=== PATIENT | female | born 1940 | race Caucasian/White ===

== ENCOUNTER 2017-11-20 15:03 | Emergency (ER) | payer MEDICARE, BC ==
[2017-11-20] MEDS ORDERED: Sodium Chloride 0.9% 10 ML Syringe FLUSH PRN (15:21)
[2017-11-20] MEDS ORDERED: Furosemide 20 MG Tab PO ONE (15:25)
[2017-11-20] MEDS ORDERED: Metoprolol Tartrate 25 MG Tab PO ONE ×2 (15:25→17:52)
[2017-11-20] MEDS ORDERED: Hydrochlorothiazide 12.5 MG Cap PO SCH (15:30)
--- NOTE | 2017-11-20 15:34 | EDM.PDOC ---
ED HPI GENERAL MEDICAL PROBLEM - General Chief Complaint: Neurological Problem Stated Complaint: CONFUSED/LOST Time Seen by Provider: 11/20/17 15:20 Source of Information: Reports: Patient, Old Records, RN History Limitations: Reports: No Limitations - History of Present Illness INITIAL COMMENTS - FREE TEXT/NARRATIVE: 76 yo female awoke in the night last night all sweaty. No chills or fever that she is aware of. No pain. Has been mildly confused/slow mentating today. Thinks she forgot to take her meds today. Lives alone. No SOB. No nausea or vomiting. No rash. Drove herself to the hospital. Onset: Today Onset Date: 11/20/17 Onset Time: 03:00 Duration: Hour(s):, Constant Location: Reports: Head, Generalized Quality: Reports: Other (no pain) Severity: Mild Improves with: Reports: None Worsens with: Reports: None Context: Reports: Other (unknown) Associated Symptoms: Reports: Diaphoresis (last night only), Headaches (mild). Denies: Fever/Chills, Nausea/Vomiting Treatments [employer]: Reports: Other (see below) (none) - Related Data Allergies Allergy/AdvReac Type Severity Reaction Status Date / Time NSAIDS (Non-Steroidal Allergy Cannot Verified 11/20/17 15:44 Anti-Inflamma Remember venlafaxine HCl AdvReac Hallucinati Verified 11/20/17 15:44 [From Effexor] ons Home Meds: Home Meds Acetaminophen/HYDROcodone [[place] 325-5 MG] 1 tab PO Q4H PRN 12/27/13 [History] Cholecalciferol (Vitamin D3) [Vitamin D] 5,000 units PO DAILY 12/27/13 [History] DULoxetine [Cymbalta] 60 mg PO DAILY 12/27/13 [History] Fenofibrate,Micronized [Fenofibrate] 200 mg PO DAILY 12/27/13 [History] Furosemide [Lasix] 20 mg PO DAILY PRN 12/27/13 [History] Gabapentin [Neurontin] 600 mg PO 5XDAY 12/27/13 [History] Levothyroxine [Synthroid] 50 mcg PO ACBRK 12/27/13 [History] Metoprolol Succinate 12.5 mg PO BID 12/27/13 [History] Valsartan/Hydrochlorothiazide [Valsartan-Hctz 80-12.5 mg Tab] 0.5 tab PO DAILY 12/27/13 [History] traMADol [Ultram] 50 - 100 mg PO Q6H PRN 12/27/13 [History] Acetaminophen/HYDROcodone [[place] 325-5 MG] 1 tab PO Q4H PRN 12/30/14 [History] fentaNYL [Fentanyl] 12 mcg TOP 12/30/14 [History] Ciprofloxacin HCl [Cipro] 250 mg PO Q12H #10 tablet 11/20/17 [Rx] Social & Family History - Tobacco Use Smoking Status *Q: Never Smoker Second Hand Smoke Exposure: No - Alcohol Use Days Per Week of Alcohol Use: 1 Number of Drinks Per Day: 1 Total Drinks Per Week: 1 - Recreational Drug Use Recreational Drug Use: No - Living Situation & Occupation Living situation: Reports: Alone Occupation: Unemployed ED ROS GENERAL - Review of Systems Review Of Systems: See Below Constitutional: Reports: Diaphoresis (last night only) HEENT: Reports: No Symptoms Respiratory: Reports: No Symptoms Cardiovascular: Reports: No Symptoms GI/Abdominal: Reports: No Symptoms : Reports: No Symptoms Musculoskeletal: Reports: No Symptoms Skin: Reports: No Symptoms Neurological: Reports: Confusion (mild) Psychiatric: Reports: No Symptoms ED EXAM, NEURO - Physical Exam Exam: See Below Exam Limited By: No Limitations General Appearance: Alert, WD/WN Eye Exam: Bilateral Eye: EOMI, Normal Inspection, PERRL Ears: Normal External Exam, Normal Canal, Hearing Grossly Normal, Normal TMs Nose: Normal Inspection, Normal Mucosa, No Blood Throat/Mouth: Normal Inspection, Normal Lips, Normal Oropharynx, Normal Voice, No Airway Compromise Head Exam: Atraumatic, Normocephalic Neck: Normal Inspection, Supple, Non-Tender Respiratory/Chest: No Respiratory Distress, Lungs Clear, Normal Breath Sounds, No Accessory Muscle Use Cardiovascular: Regular Rate, Rhythm, No Edema GI/Abdominal: Normal Bowel Sounds, Soft, Non-Tender, No Distention Neurological: Alert, Normal Mood/Affect, CN II-XII Intact, No Motor/Sensory Deficits, Oriented x 3 Back Exam: Normal Inspection. No: CVA Tenderness (R), CVA Tenderness (L) Extremities: Normal Inspection, Normal Range of Motion, Non-Tender, No Pedal Edema Psychiatric: Normal Affect, Normal Mood Skin Exam: Warm, Dry, Intact, Normal Color, No Rash EKG INTERPRETATION EKG Date: 11/20/17 Time: 15:35 Rhythm: NSR Rate (Beats/Min): 74 [place]: Normal P-Wave: Present QRS: Other (L ant fascicular block) ST-T: Normal QT: Prolonged Comparison: NA - No Prior EKG Course - Vital Signs Last Recorded V/S: Last Vital Signs Temp 36.6 C 11/20/17 15:41 Pulse 82 11/20/17 17:16 Resp 18 11/20/17 15:41 BP 169/109 H 11/20/17 17:16 Pulse Ox 94 L 11/20/17 17:11 - Orders/Labs/Meds Orders: Active Orders 24 hr Category Date Time Status Bladder Scan [RC] ONETIME Care 11/20/17 15:57 Active Cardiac Monitoring [RC] .As Directed Care 11/20/17 15:21 Active EKG Documentation Completion [RC] ASDIRECTED Care 11/20/17 15:29 Active CULTURE URINE [RM] Stat Lab 11/20/17 17:00 Received UA W/MICROSCOPIC [URIN] Stat Lab 11/20/17 16:13 Ordered Ciprofloxacin in D5W [Cipro in D5W 400 MG/200 ML] 400 Med 11/20/17 16:59 Active mg Premix Bag 1 bag IV ONETIME Hydrochlorothiazide Med 11/20/17 15:30 Active 12.5 mg PO DAILY Sodium Chloride 0.9% [Saline Flush] Med 11/20/17 15:21 Active 10 ml FLUSH ASDIRECTED PRN Saline Lock Insert [OM.PC] Routine Oth 11/20/17 15:21 Ordered EKG 12 Lead [EK] Routine Ther 11/20/17 15:28 Ordered Medication Orders Hydrochlorothiazide (Hydrochlorothiazide) 12.5 mg PO DAILY [facility] Last Admin: 11/20/17 17:15 Dose: 12.5 mg Ciprofloxacin/Dextrose 400 mg/ (Premix) 200 mls @ 200 mls/hr IV ONETIME ONE Stop: 11/20/17 17:58 Last Admin: 11/20/17 17:21 Dose: 200 mls/hr Sodium Chloride (Saline Flush) 10 ml FLUSH ASDIRECTED PRN PRN Reason: Keep Vein Open Last Admin: 11/20/17 17:25 Dose: 10 ml Labs: Laboratory Tests 11/20/17 11/20/17 11/20/17 Range/Units 15:30 15:30 15:30 WBC 7.2 (4.5-11.0) K/uL RBC 5.35 (3.30-5.50) M/uL Hgb 15.9 H D (12.0-15.0) g/dL Hct 46.3 (36.0-48.0) % MCV 87 (80-98) fL MCH 30 (27-31) pg MCHC 34 (32-36) % Plt Count 252 (150-400) K/uL Sodium 142 (140-148) mmol/L Potassium 3.3 L (3.6-5.2) mmol/L Chloride 104 (100-108) mmol/L Carbon Dioxide 27 (21-32) mmol/L Anion Gap 14.3 H (5.0-14.0) mmol/L BUN 19 H (7-18) mg/dL Creatinine 1.0 (0.6-1.0) mg/dL Est Cr Clr Drug Dosing 38.35 mL/min Estimated GFR (MDRD) 54 L (>60) Glucose 118 H (74-106) mg/dL Calcium 9.7 (8.5-10.1) mg/dL Magnesium (1.8-2.4) mg/dL Troponin I < 0.017 (0.000-0.056) ng/mL TSH, Ultra Sensitive 3.715 (0.358-3.740) uIU/mL Urine Color Urine Appearance Urine pH (4.5-8.0) Ur Specific [place] (1.008-1.030) Urine Protein (NEGATIVE) mg/dL Urine Glucose (UA) (NEGATIVE) mg/dL Urine Ketones (NEGATIVE) mg/dL Urine Occult Blood (NEGATIVE) Urine Nitrite (NEGATIVE) Urine Bilirubin (NEGATIVE) Urine Urobilinogen (NORMAL) mg/dL Ur Leukocyte Esterase (NEGATIVE) Urine RBC (0-5) Urine WBC (0-5) Ur Epithelial Cells Amorphous Sediment Urine Bacteria Urine Mucus 11/20/17 11/20/17 Range/Units 16:07 16:13 WBC (4.5-11.0) K/uL RBC (3.30-5.50) M/uL Hgb (12.0-15.0) g/dL Hct (36.0-48.0) % MCV (80-98) fL MCH (27-31) pg MCHC (32-36) % Plt Count (150-400) K/uL Sodium (140-148) mmol/L Potassium (3.6-5.2) mmol/L Chloride (100-108) mmol/L Carbon Dioxide (21-32) mmol/L Anion Gap (5.0-14.0) mmol/L BUN (7-18) mg/dL Creatinine (0.6-1.0) mg/dL Est Cr Clr Drug Dosing mL/min Estimated GFR (MDRD) (>60) Glucose (74-106) mg/dL Calcium (8.5-10.1) mg/dL Magnesium 1.6 L (1.8-2.4) mg/dL Troponin I (0.000-0.056) ng/mL TSH, Ultra Sensitive (0.358-3.740) uIU/mL Urine Color [place] Urine Appearance Slightly cloudy Urine pH 5.0 (4.5-8.0) Ur Specific [place] 1.025 (1.008-1.030) Urine Protein 100 H (NEGATIVE) mg/dL Urine Glucose (UA) Normal (NEGATIVE) mg/dL Urine Ketones 15 H (NEGATIVE) mg/dL Urine Occult Blood Moderate (NEGATIVE) Urine Nitrite Positive H (NEGATIVE) Urine Bilirubin Small (NEGATIVE) Urine Urobilinogen 1 (NORMAL) mg/dL Ur Leukocyte Esterase Large (NEGATIVE) Urine RBC 10-20 H (0-5) Urine WBC 20-30 H (0-5) Ur Epithelial Cells Rare Amorphous Sediment Few Urine Bacteria Moderate Urine Mucus Not seen Meds: Medications Generic Name Dose Route Start Last Admin Trade Name Freq PRN Reason Stop Dose Admin Hydrochlorothiazide 12.5 mg 11/20/17 15:30 11/20/17 17:15 Hydrochlorothiazide PO 12.5 mg DAILY SHERIF Administration Ciprofloxacin/Dextrose 400 mg/ 200 mls @ 200 mls/hr 11/20/17 16:59 11/20/17 17:21 Premix IV 11/20/17 17:58 200 mls/hr ONETIME ONE Administration Sodium Chloride 10 ml 11/20/17 15:21 11/20/17 17:25 Saline Flush FLUSH 10 ml ASDIRECTED PRN Administration Keep Vein Open Discontinued Medications Generic Name Dose Route Start Last Admin Trade Name Freq PRN Reason Stop Dose Admin Acetaminophen 1,000 mg 11/20/17 15:57 11/20/17 17:18 Tylenol Extra Strength PO 11/20/17 15:58 1,000 mg ONETIME ONE Administration Furosemide 20 mg 11/20/17 15:25 11/20/17 17:15 Lasix PO 11/20/17 15:26 20 mg ONETIME ONE Administration Lactated Ringer's 1,000 mls @ 1,000 mls/hr 11/20/17 15:57 11/20/17 17:13 Ringers, Lactated IV 11/20/17 16:56 1,000 mls/hr BOLUS ONE Administration Magnesium Oxide 800 mg 11/20/17 16:57 11/20/17 17:17 Magnesium Oxide PO 11/20/17 16:58 800 mg ONETIME ONE Administration Metoprolol Tartrate 25 mg 11/20/17 15:25 11/20/17 17:16 Lopressor PO 11/20/17 15:26 25 mg ONETIME ONE Administration Potassium Chloride 40 meq 11/20/17 16:07 11/20/17 17:19 Klor-Con M20 PO 11/20/17 16:08 40 meq ONETIME ONE Administration Valsartan 80 mg 11/20/17 15:24 11/20/17 17:15 Diovan PO 11/20/17 15:25 80 mg ONETIME ONE Administration Departure - Departure Time of Disposition: 18:20 Disposition: Home, Self-Care 01 Condition: Fair Clinical Impression: Hypokalemia, Hypomagnesemia UTI (urinary tract infection) Qualifiers: Urinary tract infection type: site unspecified Hematuria presence: without hematuria Qualified Code(s): N39.0 - Urinary tract infection, site not specified - Discharge Information Prescriptions: Ciprofloxacin HCl [Cipro] 250 mg PO Q12H #10 tablet Referrals: PCP,None [Primary Care Provider] - Forms: ED Department Discharge Additional Instructions: Take ciprofloxacin every 12 hrs as directed. Drink ample fluids. Take acetaminophen as needed for pain or fever control. F/U with your provider early next week to review your urine culture results. Eat a high potassium diet(lots of fresh fruit, yogurt). Return if worse. - My Orders Last 24 Hours: My Active Orders 11/20/17 15:21 Cardiac Monitoring [RC] .As Directed Sodium Chloride 0.9% [Saline Flush] 10 ml FLUSH ASDIRECTED PRN Saline Lock Insert [OM.PC] Routine 11/20/17 15:28 EKG 12 Lead [EK] Routine 11/20/17 15:29 EKG Documentation Completion [RC] ASDIRECTED 11/20/17 15:30 Hydrochlorothiazide 12.5 mg PO DAILY 11/20/17 15:57 Bladder Scan [RC] ONETIME 11/20/17 16:13 UA W/MICROSCOPIC [URIN] Stat 11/20/17 16:59 Ciprofloxacin in D5W [Cipro in D5W 400 MG/200 ML] 400 mg Premix Bag 1 bag IV ONETIME 11/20/17 17:00 CULTURE URINE [RM] Stat - Assessment/Plan Last 24 Hours: My Active Orders 11/20/17 15:21 Cardiac Monitoring [RC] .As Directed Sodium Chloride 0.9% [Saline Flush] 10 ml FLUSH ASDIRECTED PRN Saline Lock Insert [OM.PC] Routine 11/20/17 15:28 EKG 12 Lead [EK] Routine 11/20/17 15:29 EKG Documentation Completion [RC] ASDIRECTED 11/20/17 15:30 Hydrochlorothiazide 12.5 mg PO DAILY 11/20/17 15:57 Bladder Scan [RC] ONETIME 11/20/17 16:13 UA W/MICROSCOPIC [URIN] Stat 11/20/17 16:59 Ciprofloxacin in D5W [Cipro in D5W 400 MG/200 ML] 400 mg Premix Bag 1 bag IV ONETIME 11/20/17 17:00 CULTURE URINE [RM] Stat
[2017-11-20] MEDS ORDERED: Lactated Ringers 1,000 ML IV ONE (15:57)
[2017-11-20] MEDS ORDERED: Acetaminophen 500 MG Tab PO ONE (15:57)
[2017-11-20] MEDS ORDERED: Potassium Chloride 20 MEQ Tab.ER PO ONE (16:07)
[2017-11-20] MEDS ORDERED: Magnesium Oxide 400 MG Tab PO ONE (16:57)
[2017-11-20] MEDS ORDERED: Ciprofloxacin in D5W 400 MG in Premix Bag 1 BAG IV ONE ×2 (16:59)
[2017-11-20 17:49] VITALS: BP 198/110
== END 2017-11-20 19:10 | disposition home or self-care (01) ==
LOC: JP.ED 15:03
DX: N39.0 Urinary tract infection, site not specified (principal); I10 Essential (primary) hypertension; E87.6 Hypokalemia; E83.42 Hypomagnesemia; Z79.899 Other long term (current) drug therapy; Z88.8 Allergy status to other drugs, medicaments and biological substances
CPT/HCPCS: 36415; 51798; 80048; 81001; 83735; 84443; 84484; 85027; 87086; 87088; 87186; 93005; 96365; 99284; A9270; J0744; J7050; J7120

== ENCOUNTER 2017-11-22 12:49 | Observation (INO) | payer MEDICARE, BC ==
[2017-11-22] MEDS ORDERED: Levofloxacin/Dextrose 5%-Water 500 MG in Premix Bag 1 BAG IV ONE (14:00)
[2017-11-22] MEDS ORDERED: Sodium Chloride 0.9% 1,000 ML IV SCH ×2 (14:00→16:03)
--- NOTE | 2017-11-22 14:06 | EDM.PDOC ---
ED HPI GENERAL MEDICAL PROBLEM - General Chief Complaint: General Stated Complaint: UTI? Time Seen by Provider: 11/22/17 14:01 Source of Information: Reports: Patient History Limitations: Reports: No Limitations - History of Present Illness INITIAL COMMENTS - FREE TEXT/NARRATIVE: pt arrived stating she can,t take care of herself. Sh has been very confused for 1 week. She feels like she is not able to take care of her dog. She was seen 11/20 and she was found to have a uti. She was given a perscription which she filled but she never remembered to take any of them. She has not run a temp. She feels like he has not been funtioning well for several weeks. Onset: Gradual Duration: Day(s): Location: Reports: Other (uti) Associated Symptoms: Reports: Confusion, Malaise, Other (not remembering things. ) - Related Data Allergies Allergy/AdvReac Type Severity Reaction Status Date / Time NSAIDS (Non-Steroidal Allergy Cannot Verified 11/24/17 14:54 Anti-Inflamma Remember venlafaxine HCl AdvReac Hallucinati Verified 11/24/17 14:54 [From Effexor] ons Home Meds: Home Meds Acetaminophen/HYDROcodone [[place] 325-5 MG] 1 tab PO Q4H PRN 12/27/13 [History] Cholecalciferol (Vitamin D3) [Vitamin D] 5,000 units PO DAILY 12/27/13 [History] DULoxetine [Cymbalta] 60 mg PO DAILY 12/27/13 [History] Fenofibrate,Micronized [Fenofibrate] 200 mg PO DAILY 12/27/13 [History] Furosemide [Lasix] 20 mg PO DAILY PRN 12/27/13 [History] Gabapentin [Neurontin] 600 mg PO BID 12/27/13 [History] Levothyroxine [Synthroid] 50 mcg PO ACBRK 12/27/13 [History] Metoprolol Succinate 12.5 mg PO DAILY 12/27/13 [History] Valsartan/Hydrochlorothiazide [Valsartan-Hctz 80-12.5 mg Tab] 1 tab PO BEDTIME 12/27/13 [History] traMADol [Ultram] 50 - 100 mg PO BID PRN 12/27/13 [History] Acetaminophen/HYDROcodone [[place] 325-5 MG] 1 tab PO Q4H PRN 12/30/14 [History] Ciprofloxacin HCl [Cipro] 250 mg PO Q12H #10 tablet 11/20/17 [Rx] Past Medical History HEENT History: Reports: Cataract, Impaired Vision Cardiovascular History: Reports: Hypertension Psychiatric History: Reports: Anxiety, Depression - Past Surgical History HEENT Surgical History: Reports: Cataract Surgery, Tonsillectomy Neurological Surgical History: Reports: Other (See Below) Other Neurological Surgeries/Procedures: "7 back surgeries". Social & Family History - Tobacco Use Smoking Status *Q: Never Smoker Second Hand Smoke Exposure: No - Alcohol Use Days Per Week of Alcohol Use: 1 Number of Drinks Per Day: 1 Total Drinks Per Week: 1 - Recreational Drug Use Recreational Drug Use: No - Living Situation & Occupation Living situation: Reports: Alone Occupation: Unemployed ED ROS GENERAL - Review of Systems Review Of Systems: See Below Constitutional: Reports: No Symptoms HEENT: Reports: No Symptoms Respiratory: Reports: No Symptoms Cardiovascular: Reports: No Symptoms Endocrine: Reports: No Symptoms GI/Abdominal: Reports: No Symptoms : Reports: No Symptoms Musculoskeletal: Reports: No Symptoms Skin: Reports: No Symptoms Neurological: Reports: Confusion Psychiatric: Reports: Anxiety ED EXAM, GENERAL - Physical Exam Exam: See Below Free Text/Narrative:: pt appears very unkept for her. She has not slept ll nite because she didn,t remember how to turn off the lites. She was seen on the and found to have a UTI. Exam Limited By: No Limitations General Appearance: Alert, Anxious, Other ( Having difficulty remembering things. pupils are equal and ractive to lite. ) Ears: Normal TMs Nose: Normal Inspection Throat/Mouth: Normal Inspection Head: Atraumatic Neck: Normal Inspection Respiratory/Chest: No Respiratory Distress Cardiovascular: Regular Rate, Rhythm GI/Abdominal: Soft, Non-Tender (Female) Exam: Deferred Rectal (Female) Exam: Deferred Back Exam: Normal Inspection Extremities: Normal Inspection Neurological: Alert, Confused, Memory Loss Recent Events Psychiatric: Anxious Course - Vital Signs Last Recorded V/S: Last Vital Signs Temp 36.9 C 11/23/17 11:17 Pulse 74 11/23/17 11:17 Resp 18 11/23/17 11:17 BP 164/104 H 11/23/17 11:17 Pulse Ox 100 11/23/17 11:17 - Orders/Labs/Meds Labs: Laboratory Tests 11/22/17 11/22/17 11/22/17 Range/Units 13:04 13:04 13:35 WBC 6.5 (4.5-11.0) K/uL RBC 5.09 (3.30-5.50) M/uL Hgb 15.1 H (12.0-15.0) g/dL Hct 44.4 (36.0-48.0) % MCV 87 (80-98) fL MCH 30 (27-31) pg MCHC 34 (32-36) % Plt Count 245 (150-400) K/uL Neut % (Auto) 62 (36-66) % Lymph % (Auto) 29 (24-44) % [place] % (Auto) 9 H (2-6) % Eos % (Auto) 1 L (2-4) % Baso % (Auto) 0 (0-1) % Sodium 141 (140-148) mmol/L Potassium 3.9 (3.6-5.2) mmol/L Chloride 104 (100-108) mmol/L Carbon Dioxide 29 (21-32) mmol/L Anion Gap 7.9 (5.0-14.0) mmol/L BUN 28 H (7-18) mg/dL Creatinine 1.2 H (0.6-1.0) mg/dL Est Cr Clr Drug Dosing 31.96 mL/min Estimated GFR (MDRD) 43 L (>60) Glucose 109 H (74-106) mg/dL Lactic Acid 1.6 (0.4-2.0) mmol/L Calcium 9.6 (8.5-10.1) mg/dL Total Bilirubin 1.9 H D (0.2-1.0) mg/dL AST 84 H D (15-37) U/L ALT 38 (12-78) U/L Alkaline Phosphatase 76 (46-116) U/L C-Reactive Protein (0.0-0.3) mg/dL Total Protein 7.0 (6.4-8.2) g/dL Albumin 3.4 (3.4-5.0) g/dL Globulin 3.6 H (2.3-3.5) g/dL Albumin/Globulin Ratio 0.9 L (1.2-2.2) Urine Color Urine Appearance Urine pH (4.5-8.0) Ur Specific [place] (1.008-1.030) Urine Protein (NEGATIVE) mg/dL Urine Glucose (UA) (NEGATIVE) mg/dL Urine Ketones (NEGATIVE) mg/dL Urine Occult Blood (NEGATIVE) Urine Nitrite (NEGATIVE) Urine Bilirubin (NEGATIVE) Urine Urobilinogen (NORMAL) mg/dL Ur Leukocyte Esterase (NEGATIVE) Urine RBC (0-5) Urine WBC (0-5) Ur Epithelial Cells Amorphous Sediment Urine Bacteria Urine Mucus 11/22/17 11/22/17 Range/Units 14:30 14:42 WBC (4.5-11.0) K/uL RBC (3.30-5.50) M/uL Hgb (12.0-15.0) g/dL Hct (36.0-48.0) % MCV (80-98) fL MCH (27-31) pg MCHC (32-36) % Plt Count (150-400) K/uL Neut % (Auto) (36-66) % Lymph % (Auto) (24-44) % [place] % (Auto) (2-6) % Eos % (Auto) (2-4) % Baso % (Auto) (0-1) % Sodium (140-148) mmol/L Potassium (3.6-5.2) mmol/L Chloride (100-108) mmol/L Carbon Dioxide (21-32) mmol/L Anion Gap (5.0-14.0) mmol/L BUN (7-18) mg/dL Creatinine (0.6-1.0) mg/dL Est Cr Clr Drug Dosing mL/min Estimated GFR (MDRD) (>60) Glucose (74-106) mg/dL Lactic Acid (0.4-2.0) mmol/L Calcium (8.5-10.1) mg/dL Total Bilirubin (0.2-1.0) mg/dL AST (15-37) U/L ALT (12-78) U/L Alkaline Phosphatase (46-116) U/L C-Reactive Protein 0.35 H (0.0-0.3) mg/dL Total Protein (6.4-8.2) g/dL Albumin (3.4-5.0) g/dL Globulin (2.3-3.5) g/dL Albumin/Globulin Ratio (1.2-2.2) Urine Color [place] Urine Appearance Slightly cloudy Urine pH 5.0 (4.5-8.0) Ur Specific [place] 1.025 (1.008-1.030) Urine Protein Negative (NEGATIVE) mg/dL Urine Glucose (UA) Normal (NEGATIVE) mg/dL Urine Ketones Negative (NEGATIVE) mg/dL Urine Occult Blood Negative (NEGATIVE) Urine Nitrite Negative (NEGATIVE) Urine Bilirubin Small (NEGATIVE) Urine Urobilinogen Normal (NORMAL) mg/dL Ur Leukocyte Esterase Large (NEGATIVE) Urine RBC 0-5 (0-5) Urine WBC 10-20 H (0-5) Ur Epithelial Cells Many Amorphous Sediment Few Urine Bacteria Few Urine Mucus Not seen Meds: Medications Discontinued Medications Generic Name Dose Route Start Last Admin Trade Name Freq PRN Reason Stop Dose Admin Acetaminophen 650 mg 11/22/17 16:03 11/22/17 22:51 Tylenol PO 650 mg Q4H PRN Administration Pain (Mild 1-3)/fever Ciprofloxacin 500 mg 11/22/17 21:00 11/22/17 20:06 Ciprofloxacin Hcl PO 500 mg BID SHERIF Administration Duloxetine HCl 60 mg 11/23/17 09:00 11/23/17 08:54 Cymbalta PO 60 mg DAILY SHERIF Administration Enoxaparin Sodium 40 mg 11/22/17 16:03 11/22/17 17:15 Lovenox SUBCUT 40 mg DAILY SHERIF Administration Enoxaparin Sodium 40 mg 11/23/17 16:00 Lovenox SUBCUT DAILY@1600 SHERIF Gabapentin 300 mg 11/22/17 21:00 11/23/17 08:56 Neurontin PO 300 mg TID SHERIF Administration Hydrochlorothiazide 6.25 mg 11/22/17 21:00 11/22/17 20:06 Hydrochlorothiazide PO 6.25 mg BEDTIME SHERIF Administration Sodium Chloride 1,000 mls @ 999 mls/hr 11/22/17 14:00 11/22/17 15:12 Normal Saline IV 999 mls/hr ASDIRECTED SHERIF Administration Levofloxacin/Dextrose 500 mg/ 100 mls @ 100 mls/hr 11/22/17 14:00 11/22/17 15 :12 Premix IV 11/22/17 14:59 100 mls/hr ONETIME ONE Administration Sodium Chloride 1,000 mls @ 75 mls/hr 11/22/17 16:03 11/22/17 22:51 Normal Saline IV 75 mls/hr ASDIRECTED SHERIF Administration Levothyroxine Sodium 50 mcg 11/23/17 07:30 Levothyroxine PO ACBREAKFAST SHERIF Levothyroxine Sodium 50 mcg 11/23/17 07:30 11/23/17 08:55 Synthroid PO 50 mcg ACBREAKFAST SHERIF Administration Lorazepam 0.5 mg 11/22/17 16:10 11/22/17 16:19 Ativan IVPUSH 11/22/17 16:11 0.5 mg ONETIME ONE Administration Magnesium Hydroxide 30 ml 11/22/17 16:03 Milk Of Magnesia PO Q12H PRN Constipation Melatonin 9 mg 11/22/17 21:00 11/22/17 20:06 Melatonin PO 9 mg BEDTIME SHERIF Administration Metoprolol Succinate 12.5 mg 11/23/17 09:00 11/23/17 08:56 Toprol Xl PO 12.5 mg DAILY SHERIF Administration Ciprofloxacin 250mg 2 each 11/23/17 09:00 11/23/17 08:56 *Pom* PO 2 each BID SHERIF Administration Ondansetron HCl 4 mg 11/22/17 16:03 Zofran IV Q4H PRN Nausea/Vomiting Pneumococcal Polyvalent Vaccine 0.5 ml 11/23/17 16:00 Pneumovax 23 IM 11/23/17 16:01 .ONCE ONE Polyethylene Glycol 17 gm 11/22/17 16:03 Miralax PO DAILY PRN Constipation Senna/Docusate Sodium 1 tab 11/22/17 16:03 Senna Plus PO BID PRN Constipation Sodium Chloride 10 ml 11/22/17 16:03 Saline Flush FLUSH ASDIRECTED PRN Keep Vein Open Valsartan 40 mg 11/22/17 21:00 11/22/17 20:06 Diovan PO 40 mg BEDTIME SHERIF Administration - Re-Assessments/Exams Free Text/Narrative Re-Assessment/Exam: 11/22/17 15:30 pt is dehydrated by lab . Iv fluids were started. She didn,t sleep all nite because she couldn,t turn the lites off. 11/22/17 15:31 Urine culture from the 4th is positive for ECOli Departure - Departure Time of Disposition: 15:31 Disposition: Admitted As Inpatient 64 Condition: Fair Clinical Impression: Confusion UTI (urinary tract infection) Qualifiers: Urinary tract infection type: site unspecified Hematuria presence: without hematuria Qualified Code(s): N39.0 - Urinary tract infection, site not specified - Discharge Information
--- NOTE | 2017-11-22 15:58 | PCM.HP ---
H&P History of Present Illness - General Date of Service: 11/22/17 Admit Problem/Dx: Admission Diagnosis/Problem Admission Diagnosis/Problem Delirium Source of Information: Patient, Old Records, Provider, RN Notes Reviewed History Limitations: Reports: Altered Mental Status (Delirium) - History of Present Illness Initial Comments - Free Text/Narative: This patient is a 76-year-old woman who is admitted to observation status through the emergency department because of delirium. She was seen and evaluated in the emergency department 2 days ago and found to have a urinary tract infection. 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 She has been fairly confused about the last few days and presented to the emergency department this afternoon for further evaluation and management. Urine culture was obtained 2 days ago at the time of her first ED visit and has grown out Escherichia coli, resistant to penicillins and some cephalosporins. He comes of her confusion is unable to provide meaningful history concerning recent symptoms or review of systems. - Related Data Allergies/Adverse Reactions: Allergies Allergy/AdvReac Type Severity Reaction Status Date / Time NSAIDS (Non-Steroidal Allergy Cannot Verified 11/22/17 13:12 Anti-Inflamma Remember venlafaxine HCl AdvReac Hallucinati Verified 11/22/17 13:12 [From Effexor] ons Home Medications: Home Meds Acetaminophen/HYDROcodone [[place] 325-5 MG] 1 tab PO Q4H PRN 12/27/13 [History] Cholecalciferol (Vitamin D3) [Vitamin D] 5,000 units PO DAILY 12/27/13 [History] DULoxetine [Cymbalta] 60 mg PO DAILY 12/27/13 [History] Fenofibrate,Micronized [Fenofibrate] 200 mg PO DAILY 12/27/13 [History] Furosemide [Lasix] 20 mg PO DAILY PRN 12/27/13 [History] Gabapentin [Neurontin] 600 mg PO BID 12/27/13 [History] Levothyroxine [Synthroid] 50 mcg PO ACBRK 12/27/13 [History] Metoprolol Succinate 12.5 mg PO DAILY 12/27/13 [History] Valsartan/Hydrochlorothiazide [Valsartan-Hctz 80-12.5 mg Tab] 0.5 applic PO BEDTIME 12/27/13 [History] traMADol [Ultram] 50 - 100 mg PO BID PRN 12/27/13 [History] Acetaminophen/HYDROcodone [[place] 325-5 MG] 1 tab PO Q4H PRN 12/30/14 [History] fentaNYL [Fentanyl] 12 mcg TOP 12/30/14 [History] Ciprofloxacin HCl [Cipro] 250 mg PO Q12H #10 tablet 11/20/17 [Rx] Past Medical History HEENT History: Reports: Cataract, Impaired Vision Cardiovascular History: Reports: Hypertension Psychiatric History: Reports: Anxiety, Depression - Past Surgical History HEENT Surgical History: Reports: Cataract Surgery, Tonsillectomy Neurological Surgical History: Reports: Other (See Below) Other Neurological Surgeries/Procedures: "7 back surgeries". Social & Family History - Tobacco Use Smoking Status *Q: Never Smoker Second Hand Smoke Exposure: No - Alcohol Use Days Per Week of Alcohol Use: 1 Number of Drinks Per Day: 1 Total Drinks Per Week: 1 - Recreational Drug Use Recreational Drug Use: No - Living Situation & Occupation Living situation: Reports: Alone Occupation: Unemployed H&P Review of Systems - Review of Systems: Review Of Systems: Unable To Obtain General: Reports: ROS unobtainable (Delirium) Exam - Exam Exam: See Below - Vital Signs Vital Signs: Last Vital Signs Temp 97.3 F 11/22/17 13:22 Pulse 91 11/22/17 14:38 Resp 16 11/22/17 14:38 BP 178/108 H 11/22/17 14:38 Pulse Ox 92 L 11/22/17 14:38 Weight: 140 lb - Exam General: Alert, Cooperative, Mild Distress. No: Oriented HEENT: Conjunctiva Clear, Hearing Intact, Mucosa Moist & [place], Normal Nasal Septum, Posterior Pharynx Clear, Pupils Equal Neck: Supple, Trachea Midline, +2 Carotid Pulse wo Bruit Lungs: Clear to Auscultation, Normal Respiratory Effort Cardiovascular: Regular Rate, Regular Rhythm, Normal S1, Normal S2 GI/Abdominal Exam: Soft, Non-Tender, No Organomegaly, No Distention Extremities: Non-Tender, No Pedal Edema Skin: Warm, Dry, Intact Neurological: Cranial Nerves Intact, Strength Equal Bilateral, Normal Speech, Normal Tone, Sensation Intact. No: Focal Deficit Neuro Extensive - Mental Status: Alert, Oriented x3, Normal Mood/Affect, Normal Cognition, Memory Intact - Patient Data Lab Results Last 24 hrs: Laboratory Results - last 24 hr 11/22/17 11/22/17 11/22/17 Range/Units 13:04 13:04 13:35 WBC 6.5 (4.5-11.0) K/uL RBC 5.09 (3.30-5.50) M/uL Hgb 15.1 H (12.0-15.0) g/dL Hct 44.4 (36.0-48.0) % MCV 87 (80-98) fL MCH 30 (27-31) pg MCHC 34 (32-36) % Plt Count 245 (150-400) K/uL Neut % (Auto) 62 (36-66) % Lymph % (Auto) 29 (24-44) % [place] % (Auto) 9 H (2-6) % Eos % (Auto) 1 L (2-4) % Baso % (Auto) 0 (0-1) % Sodium 141 (140-148) mmol/L Potassium 3.9 (3.6-5.2) mmol/L Chloride 104 (100-108) mmol/L Carbon Dioxide 29 (21-32) mmol/L Anion Gap 7.9 (5.0-14.0) mmol/L BUN 28 H (7-18) mg/dL Creatinine 1.2 H (0.6-1.0) mg/dL Est Cr Clr Drug Dosing 31.96 mL/min Estimated GFR (MDRD) 43 L (>60) Glucose 109 H (74-106) mg/dL Lactic Acid 1.6 (0.4-2.0) mmol/L Calcium 9.6 (8.5-10.1) mg/dL Total Bilirubin 1.9 H D (0.2-1.0) mg/dL AST 84 H D (15-37) U/L ALT 38 (12-78) U/L Alkaline Phosphatase 76 (46-116) U/L C-Reactive Protein (0.0-0.3) mg/dL Total Protein 7.0 (6.4-8.2) g/dL Albumin 3.4 (3.4-5.0) g/dL Globulin 3.6 H (2.3-3.5) g/dL Albumin/Globulin Ratio 0.9 L (1.2-2.2) Urine Color Urine Appearance Urine pH (4.5-8.0) Ur Specific [place] (1.008-1.030) Urine Protein (NEGATIVE) mg/dL Urine Glucose (UA) (NEGATIVE) mg/dL Urine Ketones (NEGATIVE) mg/dL Urine Occult Blood (NEGATIVE) Urine Nitrite (NEGATIVE) Urine Bilirubin (NEGATIVE) Urine Urobilinogen (NORMAL) mg/dL Ur Leukocyte Esterase (NEGATIVE) Urine RBC (0-5) Urine WBC (0-5) Ur Epithelial Cells Amorphous Sediment Urine Bacteria Urine Mucus 11/22/17 11/22/17 Range/Units 14:30 14:42 WBC (4.5-11.0) K/uL RBC (3.30-5.50) M/uL Hgb (12.0-15.0) g/dL Hct (36.0-48.0) % MCV (80-98) fL MCH (27-31) pg MCHC (32-36) % Plt Count (150-400) K/uL Neut % (Auto) (36-66) % Lymph % (Auto) (24-44) % [place] % (Auto) (2-6) % Eos % (Auto) (2-4) % Baso % (Auto) (0-1) % Sodium (140-148) mmol/L Potassium (3.6-5.2) mmol/L Chloride (100-108) mmol/L Carbon Dioxide (21-32) mmol/L Anion Gap (5.0-14.0) mmol/L BUN (7-18) mg/dL Creatinine (0.6-1.0) mg/dL Est Cr Clr Drug Dosing mL/min Estimated GFR (MDRD) (>60) Glucose (74-106) mg/dL Lactic Acid (0.4-2.0) mmol/L Calcium (8.5-10.1) mg/dL Total Bilirubin (0.2-1.0) mg/dL AST (15-37) U/L ALT (12-78) U/L Alkaline Phosphatase (46-116) U/L C-Reactive Protein 0.35 H (0.0-0.3) mg/dL Total Protein (6.4-8.2) g/dL Albumin (3.4-5.0) g/dL Globulin (2.3-3.5) g/dL Albumin/Globulin Ratio (1.2-2.2) Urine Color [place] Urine Appearance Slightly cloudy Urine pH 5.0 (4.5-8.0) Ur Specific [place] 1.025 (1.008-1.030) Urine Protein Negative (NEGATIVE) mg/dL Urine Glucose (UA) Normal (NEGATIVE) mg/dL Urine Ketones Negative (NEGATIVE) mg/dL Urine Occult Blood Negative (NEGATIVE) Urine Nitrite Negative (NEGATIVE) Urine Bilirubin Small (NEGATIVE) Urine Urobilinogen Normal (NORMAL) mg/dL Ur Leukocyte Esterase Large (NEGATIVE) Urine RBC 0-5 (0-5) Urine WBC 10-20 H (0-5) Ur Epithelial Cells Many Amorphous Sediment Few Urine Bacteria Few Urine Mucus Not seen Result Diagrams: 11/22/17 13:04 11/22/17 13:04 *Q Meaningful Use (ADM) - VTE Risk Assess *Q Each Risk Factor Represents 1 Point: None Total Score 1 Point Risk Factors: 0 Each Risk Factor Represents 2 Points: None Total Score 2 Point Risk Factors: 0 Each Risk Factor Represents 3 Points: Age 75 Years or Greater Total Score 3 Point Risk Factors: 3 Each Risk Factor Represents 5 Points: None Total Score 5 Point Risk Factors: 0 Venous Thromboembolism Risk Factor Score *Q: 3 Problem List Initiated/Reviewed/Updated: Yes Orders Last 24hrs: Active Orders 24 hr Category Date Time Status Patient Status Manage Transfer [TRANSFER] Routine ADT 11/22/17 15:34 Active Head wo Cont [CT] Stat Exams 11/22/17 13:46 Taken UA W/MICROSCOPIC [URIN] Urgent Lab 11/22/17 14:42 Ordered Sodium Chloride 0.9% [Normal Saline] 1,000 ml Med 11/22/17 14:00 Active IV ASDIRECTED Resuscitation Status Routine Resus Stat 11/22/17 15:36 Ordered Medication Orders Sodium Chloride (Normal Saline) 1,000 mls @ 999 mls/hr IV ASDIRECTED SHERIF Last Admin: 11/22/17 15:12 Dose: 999 mls/hr Assessment/Plan Comment:: ASSESSMENT AND PLAN DELIRIUM-she has no family available for further history, question as to whether she has some underlying dementia. Apparently she has been more confused now over the last few days, likely related to underlying urinary tract infection. Her may also be some element of medication effect, she is on multiple medications which could contribute to confusion and delirium. -Hold pain medications which could be contributing to confusion and delirium -Decrease gabapentin to 300 mg 3 times daily -Melatonin 9 mg by mouth daily at bedtime URINARY TRACT INFECTION-urine culture from 2 days ago growing Escherichia coli, resistant to penicillins and some of the cephalosporins, sensitive to fluoroquinolones. She did receive a dose of IV levofloxacin in the emergency department -Ciprofloxacin 500 mg by mouth twice a day -IV fluids for hydration CHRONIC LOW BACK PAIN-several previous surgeries on her low back -Medication management as above MAINTENANCE ISSUES -DVT prophylaxis; Lovenox 40 mg subcutaneous daily -GI prophylaxis; not indicated -May catheter; not indicated -Nutrition; regular diet -Nicotine dependence; not required CODE STATUS-FULL CODE ADMISSION STATUS-this patient will be admitted to observation status, expect no more than a one night hospital stay for evaluation and management of problems as outlined above. DISPOSITION-anticipate discharge to home after the hospital stay. PRIMARY CARE PROVIDER-
[2017-11-22] MEDS ORDERED: Polyethylene Glycol 3350 Powder 17 GM Packet PO PRN (16:03)
[2017-11-22] MEDS ORDERED: Acetaminophen 325 MG Tab PO PRN (16:03)
[2017-11-22] MEDS ORDERED: Enoxaparin 40 MG/0.4 ML Syringe SUBCUT SCH (16:03)
[2017-11-22] MEDS ORDERED: Sodium Chloride 0.9% 10 ML Syringe FLUSH PRN (16:03)
[2017-11-22] MEDS ORDERED: Ondansetron 4 MG/2 ML SDV IV PRN (16:03)
[2017-11-22] MEDS ORDERED: Magnesium Hydroxide 400 MG/5 ML Susp 30 ML Cup PO PRN (16:03)
[2017-11-22] MEDS ORDERED: LORazepam 2 MG/ML SDV IVPUSH ONE (16:10)
[2017-11-22] MEDS ORDERED: Pneumococcal Polyvalent-23 Vaccine 0.5 ML SDV IM ONE (17:42)
[2017-11-22] MEDS: Gabapentin 300 MG Cap PO SCH (20:06)
[2017-11-22] MEDS ORDERED: CIPROFLOXACIN 500 MG PO SCH (21:00)
[2017-11-22] MEDS ORDERED: Melatonin 3 MG Tab PO SCH (21:00)
[2017-11-22] MEDS ORDERED: Hydrochlorothiazide 25 MG Tab PO SCH (21:00)
[2017-11-23] MEDS ORDERED: LEVOTHYROXINE 50 MCG PO SCH (07:30)
[2017-11-23] MEDS ORDERED: Levothyroxine 25 MCG Tab PO SCH (07:30)
[2017-11-23] MEDS: Gabapentin 300 MG Cap PO SCH (08:56)
[2017-11-23] MEDS ORDERED: DULoxetine 30 MG Cap PO SCH (09:00)
[2017-11-23] MEDS ORDERED: CIPROFLOXACIN 250 MG PO SCH (09:00)
[2017-11-23] MEDS ORDERED: Metoprolol Succinate 25 MG Tab.ER PO SCH (09:00)
[2017-11-23 11:21] VITALS: BP 164/104
--- NOTE | 2017-11-23 11:39 | PCM.DCSUM1 ---
Discharge Summary - Hospital Course Brief History: 76-year-old female with history of essential hypertension and chronic pain who presented with weakness and confusion. She was admitted for management of a urinary tract infection with delirium. - Discharge Data Discharge Date: 11/23/17 Discharge Disposition: Home, Self-Care 01 Condition: Good - Patient Summary/Data Consults: Consultations 11/22/17 16:03 PT Evaluation and Treatment [CONS] Routine Please Evaluate and Treat. PT Reason for Consult: weakness This query below is only for informational purposes and is not editable. Hospital Course: Romana presented to the emergency room with weakness and confusion. She had recently been diagnosed with a urinary tract infection and had been prescribed antibiotics but she had not started them. She reports that she had forgot to start taking the medications. With her confusion it was thought that she was not safe for outpatient management so she was admitted for further management. Overnight with hydration and antibiotic administration she cleared and returned to her baseline. She was alert, oriented and interactive the morning after discharge. She was able to recall phone numbers and contacts and was thought to be back to her baseline. Her urine culture was reviewed and it revealed that she had an Escherichia coli that was sensitive to ciprofloxacin that had been prescribed. She was discharged to home with her neighbor. She had the antibiotics and hand at the time of discharge. Vital signs have been stable during the course of the hospital stay. - Patient Instructions Diet: Regular Diet as Tolerated Activity: As Tolerated Driving: May Drive Today (starting tomorrow ) Showering/Bathing: May Shower Notify Provider of: Fever, Increased Pain, Nausea and/or Vomiting Other/Special Instructions: 1. You were in the hospital for management of confusion related to a urinary tract infection. Symptoms have improved with antibiotic therapy and IV fluids. Please complete your course of antibiotics as prescribed by taking 250 mg twice daily until your prescription is complete. Your next dose of antibiotics is due tonight. 2. Continue your other medications as previously prescribed. 3. Please seek medical attention if you develop fever greater than 101, you have profound weakness, or increasing confusion. - Discharge Plan Home Medications: Home Meds Acetaminophen/HYDROcodone [[place] [employer] 325-5 MG] 1 tab PO Q4H PRN 12/27/13 [History] Cholecalciferol (Vitamin D3) [Vitamin D] 5,000 units PO DAILY 12/27/13 [History] DULoxetine [Cymbalta] 60 mg PO DAILY 12/27/13 [History] Fenofibrate,Micronized [Fenofibrate] 200 mg PO DAILY 12/27/13 [History] Furosemide [Lasix] 20 mg PO DAILY PRN 12/27/13 [History] Gabapentin [Neurontin] 600 mg PO BID 12/27/13 [History] Levothyroxine [Synthroid] 50 mcg PO ACBRK 12/27/13 [History] Metoprolol Succinate 12.5 mg PO DAILY 12/27/13 [History] Valsartan/Hydrochlorothiazide [Valsartan-Hctz 80-12.5 mg Tab] 0.5 applic PO BEDTIME 12/27/13 [History] traMADol [Ultram] 50 - 100 mg PO BID PRN 12/27/13 [History] Acetaminophen/HYDROcodone [[employer] 325-5 MG] 1 tab PO Q4H PRN 12/30/14 [History] fentaNYL [Fentanyl] 12 mcg TOP 12/30/14 [History] Ciprofloxacin HCl [Cipro] 250 mg PO Q12H #10 tablet 11/20/17 [Rx] Patient Handouts: Urinary Tract Infection, Adult, Ciprofloxacin tablets Referrals: PCP,None [Primary Care Provider] - (f/u as needed after the hospital stay ) - Discharge Summary/Plan Comment DC Time >30 min.: No (25) - Patient Data Vitals - Most Recent: Last Vital Signs Temp 36.9 C 11/23/17 11:17 Pulse 74 11/23/17 11:17 Resp 18 11/23/17 11:17 BP 164/104 H 11/23/17 11:17 Pulse Ox 100 11/23/17 11:17 Weight - Most Recent: 65.8 kg I&O - Last 24 hours: Intake & Output 11/22/17 11/23/17 11/23/17 22:59 06:59 14:59 Intake Total 919 300 Output Total 400 400 300 Balance -400 519 0 Lab Results - Last 24 hrs: Laboratory Results - last 24 hr 11/22/17 11/22/17 11/22/17 Range/Units 13:04 13:04 13:35 WBC 6.5 (4.5-11.0) K/uL RBC 5.09 (3.30-5.50) M/uL Hgb 15.1 H (12.0-15.0) g/dL Hct 44.4 (36.0-48.0) % MCV 87 (80-98) fL MCH 30 (27-31) pg MCHC 34 (32-36) % Plt Count 245 (150-400) K/uL Neut % (Auto) 62 (36-66) % Lymph % (Auto) 29 (24-44) % [place] % (Auto) 9 H (2-6) % Eos % (Auto) 1 L (2-4) % Baso % (Auto) 0 (0-1) % Sodium 141 (140-148) mmol/L Potassium 3.9 (3.6-5.2) mmol/L Chloride 104 (100-108) mmol/L Carbon Dioxide 29 (21-32) mmol/L Anion Gap 7.9 (5.0-14.0) mmol/L BUN 28 H (7-18) mg/dL Creatinine 1.2 H (0.6-1.0) mg/dL Est Cr Clr Drug Dosing 31.96 mL/min Estimated GFR (MDRD) 43 L (>60) Glucose 109 H (74-106) mg/dL Lactic Acid 1.6 (0.4-2.0) mmol/L Calcium 9.6 (8.5-10.1) mg/dL Total Bilirubin 1.9 H D (0.2-1.0) mg/dL AST 84 H D (15-37) U/L ALT 38 (12-78) U/L Alkaline Phosphatase 76 (46-116) U/L C-Reactive Protein (0.0-0.3) mg/dL Total Protein 7.0 (6.4-8.2) g/dL Albumin 3.4 (3.4-5.0) g/dL Globulin 3.6 H (2.3-3.5) g/dL Albumin/Globulin Ratio 0.9 L (1.2-2.2) Urine Color Urine Appearance Urine pH (4.5-8.0) Ur Specific [place] (1.008-1.030) Urine Protein (NEGATIVE) mg/dL Urine Glucose (UA) (NEGATIVE) mg/dL Urine Ketones (NEGATIVE) mg/dL Urine Occult Blood (NEGATIVE) Urine Nitrite (NEGATIVE) Urine Bilirubin (NEGATIVE) Urine Urobilinogen (NORMAL) mg/dL Ur Leukocyte Esterase (NEGATIVE) Urine RBC (0-5) Urine WBC (0-5) Ur Epithelial Cells Amorphous Sediment Urine Bacteria Urine Mucus 11/22/17 11/22/17 11/23/17 Range/Units 14:30 14:42 05:48 WBC (4.5-11.0) K/uL RBC (3.30-5.50) M/uL Hgb (12.0-15.0) g/dL Hct (36.0-48.0) % MCV (80-98) fL MCH (27-31) pg MCHC (32-36) % Plt Count (150-400) K/uL Neut % (Auto) (36-66) % Lymph % (Auto) (24-44) % [place] % (Auto) (2-6) % Eos % (Auto) (2-4) % Baso % (Auto) (0-1) % Sodium 143 (140-148) mmol/L Potassium 3.6 (3.6-5.2) mmol/L Chloride 109 H (100-108) mmol/L Carbon Dioxide 26 (21-32) mmol/L Anion Gap 11.6 (5.0-14.0) mmol/L BUN 22 H (7-18) mg/dL Creatinine 1.0 (0.6-1.0) mg/dL Est Cr Clr Drug Dosing 40.04 mL/min Estimated GFR (MDRD) 54 L (>60) Glucose 114 H (74-106) mg/dL Lactic Acid (0.4-2.0) mmol/L Calcium 8.4 L (8.5-10.1) mg/dL Total Bilirubin 1.2 H (0.2-1.0) mg/dL AST 56 H (15-37) U/L ALT 33 (12-78) U/L Alkaline Phosphatase 63 (46-116) U/L C-Reactive Protein 0.35 H (0.0-0.3) mg/dL Total Protein 5.8 L (6.4-8.2) g/dL Albumin 2.7 L (3.4-5.0) g/dL Globulin 3.1 (2.3-3.5) g/dL Albumin/Globulin Ratio 0.9 L (1.2-2.2) Urine Color [place] Urine Appearance Slightly cloudy Urine pH 5.0 (4.5-8.0) Ur Specific [place] 1.025 (1.008-1.030) Urine Protein Negative (NEGATIVE) mg/dL Urine Glucose (UA) Normal (NEGATIVE) mg/dL Urine Ketones Negative (NEGATIVE) mg/dL Urine Occult Blood Negative (NEGATIVE) Urine Nitrite Negative (NEGATIVE) Urine Bilirubin Small (NEGATIVE) Urine Urobilinogen Normal (NORMAL) mg/dL Ur Leukocyte Esterase Large (NEGATIVE) Urine RBC 0-5 (0-5) Urine WBC 10-20 H (0-5) Ur Epithelial Cells Many Amorphous Sediment Few Urine Bacteria Few Urine Mucus Not seen Med Orders - Current: Current Medications Acetaminophen (Tylenol) 650 mg PO Q4H PRN PRN Reason: Pain (Mild 1-3)/fever Last Admin: 11/22/17 22:51 Dose: 650 mg Duloxetine HCl (Cymbalta) 60 mg PO DAILY [facility] Last Admin: 11/23/17 08:54 Dose: 60 mg Enoxaparin Sodium (Lovenox) 40 mg SUBCUT DAILY@1600 [facility] Gabapentin (Neurontin) 300 mg PO TID [facility] Last Admin: 11/23/17 08:56 Dose: 300 mg Hydrochlorothiazide (Hydrochlorothiazide) 6.25 mg PO BEDTIME [facility] Last Admin: 11/22/17 20:06 Dose: 6.25 mg Sodium Chloride (Normal Saline) 1,000 mls @ 75 mls/hr IV ASDIRECTED [facility] Last Admin: 11/22/17 22:51 Dose: 75 mls/hr Levothyroxine Sodium (Synthroid) 50 mcg PO ACBREAKFAST [facility] Last Admin: 11/23/17 08:55 Dose: 50 mcg Magnesium Hydroxide (Milk Of Magnesia) 30 ml PO Q12H PRN PRN Reason: Constipation Melatonin (Melatonin) 9 mg PO BEDTIME [facility] Last Admin: 11/22/17 20:06 Dose: 9 mg Metoprolol Succinate (Toprol Xl) 12.5 mg PO DAILY [facility] Last Admin: 11/23/17 08:56 Dose: 12.5 mg Ciprofloxacin 250mg (*Pom*) 2 each PO BID [facility] Last Admin: 11/23/17 08:56 Dose: 2 each Ondansetron HCl (Zofran) 4 mg IV Q4H PRN PRN Reason: Nausea/Vomiting Pneumococcal Polyvalent Vaccine (Pneumovax 23) 0.5 ml IM .ONCE ONE Stop: 11/23/17 16:01 Polyethylene Glycol (Miralax) 17 gm PO DAILY PRN PRN Reason: Constipation Senna/Docusate Sodium (Senna Plus) 1 tab PO BID PRN PRN Reason: Constipation Sodium Chloride (Saline Flush) 10 ml FLUSH ASDIRECTED PRN PRN Reason: Keep Vein Open Valsartan (Diovan) 40 mg PO BEDTIME [facility] Last Admin: 11/22/17 20:06 Dose: 40 mg Discontinued Medications Ciprofloxacin (Ciprofloxacin Hcl) 500 mg PO BID [facility] Last Admin: 11/22/17 20:06 Dose: 500 mg Enoxaparin Sodium (Lovenox) 40 mg SUBCUT DAILY [facility] Last Admin: 11/22/17 17:15 Dose: 40 mg Sodium Chloride (Normal Saline) 1,000 mls @ 999 mls/hr IV ASDIRECTED [facility] Last Admin: 11/22/17 15:12 Dose: 999 mls/hr Levofloxacin/Dextrose 500 mg/ (Premix) 100 mls @ 100 mls/hr IV ONETIME ONE Stop: 11/22/17 14:59 Last Admin: 11/22/17 15:12 Dose: 100 mls/hr Levothyroxine Sodium (Levothyroxine) 50 mcg PO ACBREAKFAST [facility] Lorazepam (Ativan) 0.5 mg IVPUSH ONETIME ONE Stop: 11/22/17 16:11 Last Admin: 11/22/17 16:19 Dose: 0.5 mg - Exam Quality Assessment: Denies: Supplemental Oxygen General: Reports: Alert, Oriented, Cooperative, No Acute Distress Neck: Reports: Supple Lungs: Reports: Normal Respiratory Effort Cardiovascular: Reports: Regular Rate, Regular Rhythm GI/Abdominal Exam: No Distention Extremities: No Pedal Edema
[2017-11-23] MEDS ORDERED: Enoxaparin 40 MG/0.4 ML Syringe SUBCUT SCH (16:00)
[2017-11-23] MEDS ORDERED: Pneumococcal Polyvalent-23 Vaccine 0.5 ML SDV IM ONE (16:00)
== END 2017-11-23 13:15 | disposition home or self-care (01) ==
LOC: JP.ED 12:49 → JP.MS 15:34
PROVIDERS: ADMIT Hospitalist; ATTEND Internal Medicine
DX: N39.0 Urinary tract infection, site not specified (principal); B96.20 Unspecified Escherichia coli [E. coli] as the cause of diseases classified elsewhere; I10 Essential (primary) hypertension; F41.9 Anxiety disorder, unspecified; F32.9 Major depressive disorder, single episode, unspecified; G89.29 Other chronic pain; M54.9 Dorsalgia, unspecified; Z79.899 Other long term (current) drug therapy; Z88.6 Allergy status to analgesic agent; Z88.8 Allergy status to other drugs, medicaments and biological substances
CPT/HCPCS: 36415; 70450; 80053; 81001; 83605; 85025; 86140; 96365; 97162; 99285; A9270; J1650; J1956; J2060; J7040

== ENCOUNTER 2017-11-24 14:39 | Emergency (ER) | payer MEDICARE, BC ==
[2017-11-24] MEDS ORDERED: Metoprolol Tartrate 25 MG Tab PO ONE (17:26)
--- NOTE | 2017-11-24 17:34 | EDM.PDOC ---
ED HPI GENERAL MEDICAL PROBLEM - General Chief Complaint: Neuro Symptoms/Deficits Stated Complaint: CONFUSED/HUNGRY/SLEEP ISSUES Time Seen by Provider: 11/24/17 17:26 Source of Information: Reports: Patient, Family, Other ( neighbors) - History of Present Illness INITIAL COMMENTS - FREE TEXT/NARRATIVE: pt arrived feeling confused and having difficulty with her meds. Her neighbors are with her nd trying to keep her safe. Onset: Gradual Duration: Day(s):, Waxing/Waning Location: Reports: Head Associated Symptoms: Reports: Confusion, Weakness - Related Data Allergies Allergy/AdvReac Type Severity Reaction Status Date / Time NSAIDS (Non-Steroidal Allergy Cannot Verified 11/24/17 14:54 Anti-Inflamma Remember venlafaxine HCl AdvReac Hallucinati Verified 11/24/17 14:54 [From Effexor] ons Home Meds: Home Meds Acetaminophen/HYDROcodone [Mabel 325-5 MG] 1 tab PO Q4H PRN 12/27/13 [History] Cholecalciferol (Vitamin D3) [Vitamin D] 5,000 units PO DAILY 12/27/13 [History] DULoxetine [Cymbalta] 60 mg PO DAILY 12/27/13 [History] Fenofibrate,Micronized [Fenofibrate] 200 mg PO DAILY 12/27/13 [History] Furosemide [Lasix] 20 mg PO DAILY PRN 12/27/13 [History] Gabapentin [Neurontin] 600 mg PO BID 12/27/13 [History] Levothyroxine [Synthroid] 50 mcg PO ACBRK 12/27/13 [History] Metoprolol Succinate 12.5 mg PO DAILY 12/27/13 [History] Valsartan/Hydrochlorothiazide [Valsartan-Hctz 80-12.5 mg Tab] 1 tab PO BEDTIME 12/27/13 [History] traMADol [Ultram] 50 - 100 mg PO BID PRN 12/27/13 [History] Acetaminophen/HYDROcodone [Mabel 325-5 MG] 1 tab PO Q4H PRN 12/30/14 [History] Ciprofloxacin HCl [Cipro] 250 mg PO Q12H #10 tablet 11/20/17 [Rx] Past Medical History HEENT History: Reports: Cataract, Impaired Vision Cardiovascular History: Reports: Hypertension Genitourinary History: Reports: Urinary Incontinence Musculoskeletal History: Reports: Arthritis, Back Pain, Chronic, Osteoporosis Psychiatric History: Reports: Anxiety, Depression Endocrine/Metabolic History: Reports: Hypothyroidism, Osteoporosis, Vitamin D Deficiency - Infectious Disease History Infectious Disease History: Reports: Chicken Pox, Measles, Mumps, Shingles - Past Surgical History HEENT Surgical History: Reports: Cataract Surgery, Tonsillectomy Female Surgical History: Reports: None Neurological Surgical History: Reports: Other (See Below) Other Neurological Surgeries/Procedures: "7 back surgeries". Musculoskeletal Surgical History: Reports: Hip Replacement, Other (See Below) Other Musculoskeletal Surgeries/Procedures:: has implant on Rt back for back px per pt, Rt hip was replaced Social & Family History - Family History Family Medical History: Noncontributory Cardiac: Reports: Other (See Below) Other Cardiac Family History: father from "heart problem" Musculoskeletal: Reports: Arthritis - Tobacco Use Smoking Status *Q: Never Smoker - Caffeine Use Caffeine Use: Reports: None - Recreational Drug Use Recreational Drug Use: No - Living Situation & Occupation Living situation: Reports: Alone Occupation: Unemployed ED ROS GENERAL - Review of Systems Review Of Systems: See Below Constitutional: Reports: No Symptoms HEENT: Reports: No Symptoms Respiratory: Reports: No Symptoms Cardiovascular: Reports: No Symptoms Endocrine: Reports: No Symptoms GI/Abdominal: Reports: No Symptoms : Reports: Other (pt has a known UTI. She is on cipro) Musculoskeletal: Reports: No Symptoms Skin: Reports: No Symptoms ED EXAM, NEURO - Physical Exam Exam: See Below Text/Narrative:: pt arrived with persistent confusion. She is confused regarding her medication. Her Nephew is coming from [place] to help her make decisions. Exam Limited By: No Limitations General Appearance: Alert, Moderate Distress, Other (pt is confused) Ears: Normal TMs Nose: Normal Inspection Throat/Mouth: Normal Inspection Head Exam: Atraumatic Neck: Normal Inspection Respiratory/Chest: No Respiratory Distress Cardiovascular: Regular Rate, Rhythm GI/Abdominal: Soft, Non-Tender Rectal (Female) Exam: Deferred Neurological: Alert Back Exam: Normal Inspection Extremities: Normal Inspection Psychiatric: Anxious, Other ( somewhat agitated. ) Course - Vital Signs Last Recorded V/S: Last Vital Signs Temp 36.8 C 11/24/17 14:57 Pulse 64 11/24/17 14:57 Resp 16 11/24/17 14:57 BP 207/120 H 11/24/17 14:57 Pulse Ox 98 11/24/17 14:57 - Orders/Labs/Meds Meds: Medications Discontinued Medications Generic Name Dose Route Start Last Admin Trade Name [place] PRN Reason Stop Dose Admin Metoprolol Tartrate 25 mg 11/24/17 17:26 Lopressor PO 11/24/17 17:27 ONETIME ONE - Re-Assessments/Exams Free Text/Narrative Re-Assessment/Exam: 11/24/17 17:49 long discussion regarding her getting some help and possibly moving to a assisted living. Departure - Departure Time of Disposition: 17:37 Disposition: Home, Self-Care 01 Condition: Fair Clinical Impression: Hypertension, Medication noncompliance due to cognitive impairment - Discharge Information Referrals: PCP,None [Primary Care Provider] - Forms: ED Department Discharge Care Plan Goals: push fluids, nephew will be coming to help her with some changes so she is safer , Homecare to go out for a visit to help set up meds. and assess the situation. Cont same meds.
[2017-11-24 17:59] VITALS: BP 176/99
== END 2017-11-24 18:15 | disposition home or self-care (01) ==
LOC: JP.ED 14:39
DX: I10 Essential (primary) hypertension (principal); Z91.19 Patient's noncompliance with other medical treatment and regimen; Z88.8 Allergy status to other drugs, medicaments and biological substances; Z79.899 Other long term (current) drug therapy
CPT/HCPCS: 99284; A9270